=== PATIENT | female | born 1970 | race Caucasian/White ===

== ENCOUNTER → 2023-09-01 | Outpatient (REF) | payer OTHER ==
[~2023-09-01] MED LIST: ABILIFY2 MG PO; AMBIEN10 MG PO; CELEXA40 MG PO; NORCO 7.5-3251 EACH PO
== END ==
LOC: MAMMO 10:12
PROVIDERS: ATTEND Family Medicine
DX: N64.89 Other specified disorders of breast (principal)

== ENCOUNTER → 2024-08-06 | Outpatient (REF) | payer OTHER | LOC: DX 10:44 | PROVIDERS: ATTEND Family Medicine | DX: Z13.820 Encounter for screening for osteoporosis (principal); S22.31XA Fracture of one rib, right side, initial encounter for closed fracture; E83.51 Hypocalcemia | CPT/HCPCS: 77080 ==

== ENCOUNTER → 2024-09-21 | Outpatient (REF) | payer OTHER | LOC: MAMMO 14:44 | PROVIDERS: ATTEND Family Medicine | DX: Z12.31 Encounter for screening mammogram for malignant neoplasm of breast (principal) | CPT/HCPCS: 77067 ==